=== PATIENT | male | born 1950 | race Caucasian/White ===

== ENCOUNTER 2020-01-22 07:24 | Outpatient (CLI) | payer OTHER, SELFPAY ==
--- NOTE | 2020-01-22 06:00 | DI.RAD_ITS ---
EXAM: XR PAIN CLINIC LUMBAR SP 2V CLINICAL HISTORY: Dx: Lumbar Spondylosis TECHNIQUE: 2D and realtime digital imaging was performed. CONTRAST MATERIAL: Refer to procedure report. COMPARISON: No exams were available for comparison FINDINGS: Fluoroscopy was provided for Dr. Taylor during the performance of a lumbar medial branch block. Please refer to the procedure report for complete details. Fluoro time: 60.6 seconds IMPRESSION:
[2020-01-22 07:55] VITALS: BP 113/81; PULSE 65; RESP 17; TEMP 37.1; O2SAT 96
[2020-01-22] MEDS: Omnipaque 240 MG/ML 50 ML BTL IJ (08:40)
--- NOTE | 2020-01-22 08:41 | PDOC.PAIN ---
Pain Clinic Procedure Note Procedure Note Procedure Note: Lumbar/Sacral Medial Branch Blocks Pre-operative diagnosis: lumbar spondylosis Post-operative diagnosis: same as above Artur Corrigan has been referred to the [facility] for lumbar/sacral medial branch blocks. COMMENTS: Patient was interviewed and the medical record reviewed. There were no medical, pharmacologic, radiographic or other structural contraindications to attempting fluoroscopically guided local anesthetic lumbar/sacral medial branch blocks. Risks and expected side effects as well as potential benefit of the procedure were reviewed and voiced concerns addressed. The printed consent form was signed and witnessed. Standard time-out procedure was performed. Patient was placed in the prone position on the fluoroscopy table and automated blood pressure cuff and pulse oximeter applied. The skin entry points for approaching the anatomic target points of the segmental medial branches of bilateral L3, L4, L5-DR were identified with anfluoroscopy and marked. Following thorough Chlorhexadine preparation of the skin and draping and 1% lidocaine infiltration of the skin entry points and subcutaneous tissues, a 22 gauge 3.5'' spinal needle was placed under fluoroscopic guidance down on to the target point for each respective segmental medial branch.Position was confirmed in A/P, oblique and lateral views with 0.25ml of omnipaque 240. Coult be this method 0.5ml 0.5% Bupivacaine was injected. Vital signs were stable throughout the procedure and were as recorded in the docflowsheet by the nursing staff. Follow up plans and appointments were discussed and was instructed to keep careful note of how the usual pain was modified by these injections. Specifically was asked to keep a pain diary for the next 24 hours using a numeric pain scale of 0-10 and report these results at the follow-up visit. Post procedure instruction was given as documented in the nursing documentation and having met discharge criteria. Patient was discharged from the [facility]. Based on the medial branches blocked today, if the patient has adequate relief and we are able to proceed to radiofrequency ablation, the treatment should result in the denervation of the bilateral L4/5 and L5/S1 facets. We would expect to denervate a total of 4 facets during the radiofrequency ablation. COMMENTS: I personally performed the entire procedure. Ave Taylor MD Pain Management CC: No Local
[2020-01-22] MEDS: Bupivacaine 0.5% Pres-Free 10 ML VIAL IJ (08:48)
[2020-01-22 08:51] VITALS: BP 129/85; PULSE 65; RESP 16; O2SAT 95
== END 2020-01-22 07:44 ==
PROVIDERS: Visit Provider Internal Medicine
DX: M47.816 Spondylosis without myelopathy or radiculopathy, lumbar region (principal)
CPT/HCPCS: 64493; 64494; 72100; Q9967

== ENCOUNTER 2020-11-20 10:17 | Outpatient (CLI) | payer OTHER, SELFPAY ==
--- NOTE | 2020-11-20 06:00 | DI.RAD_ITS ---
Exam(s) XR PAIN CLINIC LUMBAR SP 2V EXAM: XR PAIN CLINIC LUMBAR SP 2V CLINICAL HISTORY: Dx: Lumbar Spondylosis TECHNIQUE: 2D and realtime digital imaging was performed. CONTRAST MATERIAL: Refer to procedure report. COMPARISON: No exams were available for comparison FINDINGS: Fluoroscopy was provided for Dr. Back during the performance of a lumbar medial branch block. Jacob barrientos refer to the procedure report for complete details. Ka,r=14.10 mGy IMPRESSION:
[2020-11-20 11:16] VITALS: BP 120/72; PULSE 68; RESP 18; TEMP 36.7; O2SAT 97
[2020-11-20] MEDS: Omnipaque 240 MG/ML 50 ML BTL IJ (11:44)
--- NOTE | 2020-11-20 11:45 | PDOC.PAIN ---
Pain Clinic Procedure Note Procedure Note Procedure Note: Lumbar/Sacral Medial Branch Blocks Artur Corrigan has been referred to the [facility] for lumbar/sacral medial branch blocks. COMMENTS: Pre-procedure pain VAS = 7/10 DX: Lumbosacral spondylosis without myelopathy Patient was interviewed and the medical record reviewed. There were no medical, pharmacologic, radiographic or other structural contraindications to attempting fluoroscopically guided local anesthetic lumbar/sacral medial branch blocks. Risks and expected side effects as well as potential benefit of the procedure were reviewed and voiced concerns addressed. The printed consent form was signed and witnessed. Standard time-out procedure was performed. Patient was placed in the prone position on the fluoroscopy table and automated blood pressure cuff and pulse oximeter applied. The skin entry points for approaching the anatomic target points of the segmental medial branches of bilateral L3-L5DR were identified with anfluoroscopy and marked. Following thorough Chlorhexadine preparation of the skin and draping and 1% lidocaine infiltration of the skin entry points and subcutaneous tissues, a 25 gauge 3.5 spinal needle was placed under fluoroscopic guidance down on to the target point for each respective segmental medial branch.Position was confirmed in A/P, oblique and lateral views with 0.25ml of omnipaque 240. At this point 0.5 cc of 2% Lidocaine was injected at each segmental nerve. Vital signs were stable throughout the procedure and were as recorded in the docflowsheet by the nursing staff. Follow up plans and appointments were discussed and was instructed to keep careful note of how the usual pain was modified by these injections. Specifically was asked to keep a pain diary for the next 24 hours using a numeric pain scale of 0-10 and report these results at the follow-up visit. Post procedure instruction was given as documented in the nursing documentation and having met discharge criteria. Patient was discharged from the [facility]. Based on the medial branches blocked today, if the patient has adequate relief and we are able to proceed to radiofrequency ablation, the treatment should result in the denervation of the bilateral L4-L5 and L5-S1 FACET JOINTS. We would expect to denervate a total of 4 facets during the radiofrequency ablation. COMMENTS: Post-procedure pain VAS was 2/10. Sav Back DO, MPH Pain Management CC: No Local
[2020-11-20] MEDS: Lidocaine 2% Pres-Free 5 ML VIAL IJ (11:48)
[2020-11-20 12:00] VITALS: BP 130/79; RESP 15; O2SAT 98
== END 2020-11-20 10:18 | disposition home or self-care (01) ==
LOC: PC 10:18
PROVIDERS: Visit Provider Preventive Medicine Occupational Medicine
DX: M47.817 Spondylosis without myelopathy or radiculopathy, lumbosacral region (principal)
CPT/HCPCS: 64493; 64494; 72100; Q9967

== ENCOUNTER 2021-01-22 09:13 | Outpatient (CLI) | payer OTHER, SELFPAY ==
[2021-01-22 09:28] VITALS: BP 133/82; PULSE 77; RESP 16; TEMP 36.8; O2SAT 97
[2021-01-22] MEDS: Lactated Ringers 1,000 ML 80 ML IV (10:06)
[2021-01-22] MEDS: fentaNYL 100 MCG/2 ML VIAL IVP (10:08)
[2021-01-22] MEDS: Midazolam 2 MG/2 ML VIAL IVP (10:09)
[2021-01-22 10:38] VITALS: BP 133/79; PULSE 71; RESP 12; O2SAT 98
--- NOTE | 2021-01-22 10:40 | DI.RAD_ITS ---
Exam(s) XR PAIN CLINIC LUMBAR SP 2V EXAM: XR PAIN CLINIC LUMBAR SP 2V CLINICAL HISTORY: DX: Lumbar Spondylosis TECHNIQUE: 2D and realtime digital imaging was performed. Radiologist not present. CONTRAST MATERIAL: None. COMPARISON: No exams were available for comparison FINDINGS: Fluoroscopy was provided for pain management radiofrequency ablation therapy. Please refer to proced ure report or details. Cumulative dose: Ka,r=24.63 mGy IMPRESSION: RADIATION DOSE DELIVERED:
--- NOTE | 2021-01-22 10:44 | PDOC.PAIN ---
Pain Clinic Procedure Note Procedure Note Procedure Note: Bilateral Lumbar Radiofrequency with Coolief Machine PROCEDURE NOTE Date of Service: January 22, 2021 Patient: Artur Corrigan Provider: Sav Bakc DO, MPH Pre Operative Diagnosis: Lumbosacral Spondylosis without Myelopathy Post Operative Diagnosis: Same Pre procedure pain; VAS= 6/10 PROCEDURE: Radiofrequency Ablation of medial branches - Bilateral L3 L4 L5 and lateral branches of bilateral S1. Artur Corrigan was brought into the fluoroscopy suite and positioned into the prone position on the fluoroscopy table and allowed to adjust to a position of comfort. A grounding pad was placed on the [right/left] thigh. The lumbar region was widely prepped with a chloraprep solution, allowed to air dry and draped in standard sterile surgical fashion. Local anesthesia was provided by [5 mL of 2% Lidocaine delivered with a 25g needle. A 17g 100 mm radiofrequency introducer needle was placed to the planned anatomic targets guided with intermittent fluoroscopy with a perpendicular approach to terminally place at the junction of the superior articular process and the transverse process of the [right/left/bilateral L4 and L5, the base of the sacral ala on the bilateral for the L5 medial branch nerve and the area between base of the sacral ala to the S1 foramen bilaterally. The stylets were removed and radiofrequency probes with a 4mm active tip were then inserted. Needle tip position of the probes was verified in the AP, oblique, and lateral views. At each site, the medial branch nerve was stimulated at 2 Hz to a maximum 1-2 volts determined to finalize safe needle and electrode placement. The patient was awake and responsive during this portion of the procedure. Each target was anesthetized with 1-2 mL of 2% Lidocaine for anesthesia for lesioning and then each target was lesioned at 80 degrees Celsius for 2 minutes and 30 seconds. 1/4 cc of Depomedrol (40 mg/cc) was injected at each segmental sensory nerve followed by 1 cc of 0.5% Bupivacaine. Tissue impedences were noted to be between 250 and 500 Ohms. Electrodes and needles were then removed and bandages placed over the needle placement sites, the patient then returned to the supine position on a stretcher and transported to the recovery room without hemodynamic, neurologic, or allergic reactions. Fluoroscopic images were printed for hard copy recording and digitally archived. POST PROCEDURE EVALUATION: Follow up plans and appointments were discussed with the Artur . Post procedure instruction was given as documented in nursing documentation and having met discharge criteria, Artur was discharged from the [facility]. COMMENTS: No apparent complications. Post-procedure pain: VAS= 1/10. F/U with our office as needed. I personally performed this entire procedure. Sav Back DO, MPH Attending Physician Pain Management
[2021-01-22] MEDS: Bupivacaine 0.5% Pres-Free 10 ML VIAL IJ (11:05)
[2021-01-22] MEDS: Lidocaine 2% Pres-Free 5 ML VIAL IJ (11:06)
[2021-01-22] MEDS: methylPREDNISolone ACETATE 40 MG/ML VIAL IJ (11:07)
== END 2021-01-22 09:14 | disposition home or self-care (01) ==
LOC: PC 09:16
PROVIDERS: Visit Provider Preventive Medicine Occupational Medicine
DX: M47.817 Spondylosis without myelopathy or radiculopathy, lumbosacral region (principal)
CPT/HCPCS: 64635; 64636; 72100; J1030; J2250; J3010